=== PATIENT | female | born 1945 | race Native Hawaiian/Other Pacific Islander ===

== ENCOUNTER 2017-05-17 08:19 | Day surgery (SDC) | payer OTHER ==
[2017-05-17] MEDS ORDERED: Lactated Ringer's 500 ML IV ONE (09:16)
[2017-05-17 09:51] VITALS: TEMP 97
[2017-05-17] MEDS ORDERED: Propofol 10 mg/ml Inj (20 ML) ONE (10:03)
[2017-05-17 10:29] VITALS: O2SAT 100
[2017-05-17 10:30] VITALS: BP 105/60; PULSE 62; RESP 15
== END 2017-05-17 12:02 | disposition home or self-care (01) ==
LOC: H.ENDO 08:19
PROVIDERS: ATTEND Internal Medicine Gastroenterology
DX: R13.10 Dysphagia, unspecified (principal); J45.909 Unspecified asthma, uncomplicated; K29.70 Gastritis, unspecified, without bleeding; K44.9 Diaphragmatic hernia without obstruction or gangrene